=== PATIENT | male | born 1995 | race Caucasian/White ===

== ENCOUNTER 2021-07-20 09:51 | Emergency (ER) | payer OTHER ==
[~2021-07-20] VITALS: Ht 188 cm; Wt 110.0 kg
[2021-07-20 10:02] VITALS: BP 121/59
[2021-07-20 10:31] VITALS: BP 117/59
[2021-07-20] MEDS ORDERED: AMOXICILLIN500 MG PO (11:03)
[2021-07-20 11:54] VITALS: BP 185/102
[2021-07-20 12:01] VITALS: BP 180/98
== END 2021-07-20 11:54 | disposition home or self-care (01) | DRG 605 ==
LOC: ED 09:51
PROC: 0HQGXZZ Repair Left Hand Skin, External Approach (ICD-10-PCS; principal; 2021-07-20)
DX: S61.215A Laceration without foreign body of left ring finger without damage to nail, initial encounter (principal); W27.8XXA Contact with other nonpowered hand tool, initial encounter; Y93.89 Activity, other specified; Y92.148 Other place in prison as the place of occurrence of the external cause; Y99.0 Civilian activity done for income or pay